=== PATIENT | male | born 1940 | race Caucasian/White ===

== ENCOUNTER 2018-03-20 10:19 | Emergency (ER) | payer MEDICARE, OTHER ==
[~2018-03-20] VITALS: Ht 172.7 cm; Wt 76.2 kg
[~2018-03-20 10:19] MED LIST: AUGMENTIN 875875 MG PO; DELTASONE20 M1 PO; HYDROCODONE BIT1 T11 PO; NAPROSYN EC375 MG PO; PRAVASTATIN SOD20 MG PO; PROTONIX40 MG PO
[2018-03-20] MEDS ORDERED: NAPROSYN500 MG PO (12:39)
[2018-03-20] MEDS ORDERED: MEDROL DOSEPAK4 MG PO (12:39)
== END 2018-03-20 12:30 | disposition home or self-care (01) ==
LOC: ED 10:19
DX: S39.012A Strain of muscle, fascia and tendon of lower back, initial encounter (principal); M25.551 Pain in right hip; Z91.040 Latex allergy status; Z79.899 Other long term (current) drug therapy; X58.XXXA Exposure to other specified factors, initial encounter; Y93.89 Activity, other specified; Y92.89 Other specified places as the place of occurrence of the external cause; Y99.8 Other external cause status

== ENCOUNTER → 2021-09-06 | Outpatient (CLI) | payer MEDICARE ==
[~2021-09-06] MED LIST changes: +MEDROL DOSEPAK4 MG PO; +NAPROSYN500 MG PO
== END | disposition home or self-care (01) ==
LOC: COVID19 09:31
PROVIDERS: ATTEND Internal Medicine
DX: Z11.52 Encounter for screening for COVID-19 (principal); Z20.822 Contact with and (suspected) exposure to COVID-19